=== PATIENT | female | born 1970 | race Caucasian/White ===

== ENCOUNTER 2020-07-02 16:01 | Inpatient (IN) | payer MEDICARE, MEDICAID, SELFPAY ==
[2020-07-02] VITALS (16 sets, daily range): BP systolic 114–159; BP diastolic 56–114; PULSE 84–102; RESP 16–29; TEMP 36–36.7; O2SAT 95–99; BMI 39.5; BMI 40.5
--- NOTE | 2020-07-02 | DI.RAD.S_ITS ---
PROCEDURE: XR ANKLE RT 2V INDICATIONS: POST REDUCTION TECHNIQUE: 3 views of the ankle were acquired. COMPARISON: [facility], CR, XR ANKLE LT MIN 3V, 07/02/2020, 17:31. FINDINGS: Bones: Two views of the right ankle were performed. The lateral view is incomplete, omitting the posterior ankle. There is a displaced fracture of the medial malleolus A posterior malleolar fracture cannot be excluded. Soft tissues: No tibiotalar joint effusion. Achilles tendon appears normal. There is soft tissue swelling over the medial and lateral malleolus. IMPRESSION: Displaced fracture of the medial malleolus. Dictated by: Mariano Mendes M.D. on 07/02/2020 at 19:45 Approved by: Mariano Mendes M.D. on 07/02/2020 at 19:47
--- NOTE | 2020-07-02 16:18 | DI.RAD.S_ITS ---
PROCEDURE: XR ANKLE RT MIN 3V INDICATIONS: fall TECHNIQUE: 3 views of the ankle were acquired. COMPARISON: None. FINDINGS: Bones: There is a displaced fracture of the medial malleolus. This demonstrates approximately 7 millimeters of distal displacement. There is a slightly comminuted and displaced fracture of the posterior malleolus. This demonstrates approximately 6 millimeters of posterior displacement and approximately 6 millimeters of overlap. There is widening of the medial joint space. There is mild widening of the distal tibia fibular articulation. Soft tissues: Large joint effusion. Diffuse soft tissue swelling. Plantar calcaneal spurring. IMPRESSION: Unstable ankle fracture with displaced medial malleolar and posterior malleolar fractures with widening of the medial joint space and prominence of the distal tibial fibular articulation. Recommend radiographs of the proximal leg to exclude more proximal fibular fracture. Dictated by: Elias Madsen D.O. on 07/02/2020 at 16:06 Approved by: Elias Madsen D.O. on 07/02/2020 at 16:10
--- NOTE | 2020-07-02 17:15 | DI.CT.S_ITS ---
PROCEDURE: CT LE RT WO CON INDICATIONS: complex fracture, request per ortho TECHNIQUE: Noncontrast 1-1.5 mm axial sections acquired from above the tibiotalar joint to the bottom of the calcaneus, with coronal and sagittal reformats. COMPARISON: Same day ankle radiographs. FINDINGS: Image quality: Mild motion artifact is noted which somewhat limits evaluation most specifically along the proximal aspect. Bones: Again noted is a displaced medial malleolar fracture at the level of the ankle mortise. There is a mildly comminuted and displaced posterior malleolar fracture with approximately 6 millimeters overlap and approximately 6 millimeters to 1.2 centimeters of posterior displacement worse along the distal margins. There is anterior subluxation of the tibia. There is irregularity of the joint space with widening of the medial joint space. There is widening of the tibiofibular syndesmosis. Punctate calcifications adjacent to the distal cuboid. Soft tissues: Diffuse soft tissue edema and swelling with joint effusion IMPRESSION: Displaced fracture of the medial malleolus. Displaced comminuted fracture of the posterior malleolus with anterior subluxation of the tibia. There is joint space widening with likely widening of the tibiofibular syndesmosis. Punctate calcifications along the distal aspect of the cuboid may represent small fractures. Dictated by: Elias Madsen D.O. on 07/02/2020 at 17:08 Approved by: Elias Madsen D.O. on 07/02/2020 at 17:15
--- NOTE | 2020-07-02 17:25 | DI.RAD.S_ITS ---
PROCEDURE: XR ANKLE LT MIN 3V INDICATIONS: injury, pain, swelling, ecchymosis TECHNIQUE: 3 views of the ankle were acquired. COMPARISON: [facility], CR, XR ANKLE RT MIN 3V, 07/02/2020, 16:39. FINDINGS: Bones: No fractures or dislocations. Ankle mortise is normally aligned. No suspicious bony lesions. Soft tissues: No tibiotalar joint effusion. Achilles tendon appears normal. Plantar calcaneal spur. IMPRESSION: No evidence of an acute osseous abnormality. Dictated by: Elias Madsen D.O. on 07/02/2020 at 17:04 Approved by: Elias Madsen D.O. on 07/02/2020 at 17:05
--- NOTE | 2020-07-02 17:50 | ED_ITS ---
HPI - Extremity Injury (Lower) General Chief Complaint: Extremity Injury, Lower Stated Complaint: right ankle injury Time Seen by Provider: 07/02/20 17:04 Source: patient and family Mode of arrival: Wheelchair Limitations: no limitations History of Present Illness HPI Narrative: 50-year-old female nonsmoker with history of anxiety depression presents with a close family friend in the chief complaint of severe right ankle pain after stepping awkwardly [place]. She has significant pain with ambulation, swelling. She denies any knee hip pain. She did not fall and hit her head. She denies any chest pain or shortness of breath. She did also invert her opposite ankle which is not causing the same trouble. She last had food at 1330 MD complaint: ankle injury Onset (ago): hour(s) Type of Injury: inversion Place: street/outdoors Severity: moderate Relieving factors: rest Context: fall Associated symptoms: swelling and unable to bear weight Other symptoms: none Related Data Home Medications Medication Instructions Recorded Confirmed alprazolam 1 mg PO PRN PRN 07/02/20 07/02/20 bupropion HCl 150 mg PO DAILY 07/02/20 07/02/20 bupropion HCl 300 mg PO DAILY 07/02/20 07/02/20 desvenlafaxine succinate 100 mg PO DAILY 07/02/20 07/02/20 escitalopram oxalate 20 mg PO DAILY 07/02/20 07/02/20 lurasidone [Latuda] 40 mg PO BEDTIME 07/02/20 07/02/20 omeprazole magnesium [Prilosec OTC] 20 mg PO DAILY 07/02/20 07/02/20 prazosin 1 mg PO BEDTIME 07/02/20 07/02/20 quetiapine 25 mg PO BEDTIME 07/02/20 07/02/20 Allergies Allergy/AdvReac Type Severity Reaction Status Date / Time Penicillins AdvReac Rash Verified 07/02/20 16:17 Review of Systems Constitutional Constitutional: Denies chills, Denies fatigue, Denies fever(s), Denies frequent falls, Denies lethargy and Denies weakness Eyes Eyes: Denies change in vision, Denies eye discharge, Denies irritation and Denies loss of vision ENT Ears, Nose, Mouth, and Throat: Denies change in voice, Denies dizziness, Denies neck pain, Denies sore throat and Denies throat swelling Cardiovascular Cardiovascular: Denies chest pain, Denies irregular heart rhythm, Denies lightheadedness, Denies palpitations, Denies dyspnea, Denies dyspnea on exertion and Denies orthopnea Respiratory Respiratory: Denies cough, Denies dyspnea, Denies dyspnea on exertion and Denies wheezing Gastrointestinal Gastrointestinal: Denies abdominal pain, Denies change in bowel habits, Denies diarrhea, Denies nausea and Denies vomiting Musculoskeletal Musculoskeletal: Reports arthralgias, Reports joint swelling, Reports limited range of motion, Denies neck pain and Denies numbness Integumentary/Breasts Skin/Breast: Denies pruritus, Denies erythema, Denies rash and Denies wounds Neurologic Neurologic: Denies behavioral changes, Denies confusion, Denies dizziness, Denies frequent falls, Denies loss of vision, Denies numbness and Denies weakness Psychiatric Psychiatric: Denies anxiety, Denies behavioral changes, Denies confusion, Denies depression, Denies homicidal ideation and Denies suicidal ideation Endocrine Endocrine: Denies fatigue, Denies flushing and Denies palpitations Hematologic/Lymphatic Hematologic/Lymphatic: Denies easy bruising Allergic/Immunologic Allergic/Immunologic: Denies urticaria, Denies throat swelling and Denies wheezing Patient History Social History household members: none Smoking Status: Never smoker alcohol intake: current alcohol intake frequency: holidays/special occasions only Substance Use Type: does not use Exam Narrative Exam Narrative: GENERAL: [50] year old patient appears stated age. Well- nourished, well-developed patient, in mild distress. HEAD: Atraumatic. Normocephalic. EYES: Pupils equal round and reactive. Extraocular motions intact. No scleral icterus. No injection or drainage. ENT: Nose without bleeding, purulent drainage. Throat without erythema, tonsillar hypertrophy or exudate. Airway patent. NECK: Trachea midline. Non tender CARDIOVASCULAR: Regular rate and rhythm without murmurs, gallops, or rubs. RESPIRATORY: Clear to auscultation. Breath sounds equal bilaterally. No wheezes, rales, or rhonchi. GASTROINTESTINAL: Abdomen soft, non-tender, nondistended. EXTREMITIES: Decreased range of motion secondary to pain of the right ankle with obvious swelling and tenderness over both the medial and lateral malleolus. This is closed and neurovascularly intact. Dorsalis pedis pulses present BACK: Nontender without deformity or crepitance. No flank tenderness. NEURO: AOx3. SKIN: No rash or erythema of visible areas Initial Vital Signs Initial Vital Signs: Vital Signs Temperature 98.1 F 07/02/20 16:12 Pulse Rate 91 H 07/02/20 16:12 Respiratory Rate 16 07/02/20 16:12 Blood Pressure 155/92 H 07/02/20 16:12 Pulse Oximetry 97 07/02/20 16:12 Procedures Orthopedic Joint Reduction Joint #1: Time Out Performed: Yes Side: right Joint Reduction Location: ankle Analgesia: procedural sedation Technique used: traction/counter-traction and direct manipulation Post-reduction neuro exam: intact Post-reduction vascular: intact Post Reduction X-Ray Obtained: Yes Post Reduction X-Ray Results: reduced Splint Applied: Yes Patient Tolerated Procedure: Well Orthopedic Splinting/Casting Injury #1: Side: right Lower Extremity Injury Location: ankle Lower Extremity Immobilizer: posterior splint and stirrup splint Post splinting neuro exam: intact Post splinting vascular exam: intact Placed by: Provider Procedural Sedation Consent signed: Yes Time out performed: Yes Indication: fracture/dislocation reduction ASA Class: II Mallampati Airway Classification: Class III Time of Last PO Intake: 13:30 IV Propofol dose (mg): 130 Intraservice time/total sedation time (min): 10 ED Sedation Level: Moderate (Concious) Patient Tolerated Procedure: Well Complications: none Course Course Course Narrative: Orthopedist was consulted early on in the visit, recommends CT Orders Ordered: Alprazolam (Alprazolam 0.5 Mg Tablet) 1 mg PO Q8H PRN PRN Reason: Anxiety Last Admin: 07/03/20 02:46 Dose: 1 mg Documented by: Bupropion HCl (Bupropion Xl 150 Mg Tab) 450 mg PO DAILY VIKTOR Escitalopram Oxalate (Escitalopram 10 Mg Tablet) 20 mg PO DAILY VIKTOR Lactated Ringer's (Lactated Ringers) 1,000 mls @ 75 mls/hr IV CONT VIKTOR Last Admin: 07/02/20 22:27 Dose: 75 mls/hr Documented by: Oxycodone HCl (Oxycodone Ir 5 Mg Tablet) 5 mg PO Q3HR PRN PRN Reason: Pain, Moderate (4-6) Last Admin: 07/03/20 02:45 Dose: 5 mg Documented by: Pantoprazole Sodium (Pantoprazole Dr 20 Mg Tablet) 20 mg PO DAILY@0700 [facility] Last Admin: 07/03/20 06:23 Dose: 20 mg Documented by: Prazosin HCl (Prazosin 1 Mg Capsule) 1 mg PO BEDTIME [facility] Last Admin: 07/02/20 22:17 Dose: 1 mg Documented by: Quetiapine Fumarate (Quetiapine 25 Mg Tablet) 25 mg PO BEDTIME [facility] Last Admin: 07/02/20 22:17 Dose: 25 mg Documented by: Discontinued Medications Bupropion HCl (Bupropion Xl 150 Mg Tab) 150 mg PO DAILY [facility] Hydromorphone HCl (Hydromorphone 0.5 Mg Inj) 0.5 mg IV NOW ONE Stop: 07/02/20 18:48 Last Admin: 07/02/20 18:50 Dose: 0.5 mg Documented by: Ondansetron HCl (Ondansetron 4 Mg/2 Ml Inj) 4 mg IV NOW ONE Stop: 07/02/20 18:50 Last Admin: 07/02/20 18:51 Dose: 4 mg Documented by: Propofol (Propofol 200 Mg/20 Ml Vial) 120 mg 1 mg/kg (120 mg) IV NOW ONE Stop: 07/02/20 18:11 Last Admin: 07/02/20 19:11 Dose: Not Given Documented by: Propofol (Propofol 200 Mg/20 Ml Vial) 50 mg IV NOW ONE Stop: 07/02/20 19:10 Last Admin: 07/02/20 18:32 Dose: 50 mg Documented by: Propofol (Propofol 200 Mg/20 Ml Vial) 30 mg IV NOW ONE Stop: 07/02/20 19:10 Last Admin: 07/02/20 18:33 Dose: 30 mg Documented by: Propofol (Propofol 200 Mg/20 Ml Vial) 20 mg IV NOW ONE Stop: 07/02/20 19:10 Last Admin: 07/02/20 18:35 Dose: 20 mg Documented by: Propofol (Propofol 200 Mg/20 Ml Vial) 40 mg IV NOW ONE Stop: 07/02/20 19:11 Last Admin: 07/02/20 18:36 Dose: 40 mg Documented by: Vital Signs Vital signs: Vital Signs - 8 hr 07/02/20 16:12 07/02/20 18:23 07/02/20 18:25 Temperature 98.1 F Pulse Rate 91 H 93 H 92 H Respiratory Rate 16 Blood Pressure 155/92 H 146/84 H 148/70 H Pulse Oximetry 97 96 95 07/02/20 18:30 07/02/20 18:32 07/02/20 18:35 Temperature Pulse Rate 96 H 94 H 93 H Respiratory Rate 20 27 H Blood Pressure 143/94 H Pulse Oximetry 95 96 96 07/02/20 18:36 07/02/20 18:40 07/02/20 18:41 Temperature Pulse Rate 90 87 88 Respiratory Rate 29 H 24 29 H Blood Pressure 129/65 139/76 Pulse Oximetry 96 95 97 07/02/20 18:43 07/02/20 18:45 07/02/20 18:50 Temperature Pulse Rate 84 87 86 Respiratory Rate 18 26 H 26 H Blood Pressure 128/56 L 152/65 H Pulse Oximetry 98 98 MDM - Extremity Injury (Lower) Lab Data Result diagrams: 07/02/20 17:50 07/02/20 17:50 Labs: Lab Results 07/02/20 07/02/20 07/02/20 Range/Units 17:45 17:50 17:50 WBC 18.1 H (4.5-11.0) X10^3/uL RBC 4.52 (4.0-5.2) X10^6/uL Hgb 12.2 (12.0-16.0) g/dL Hct 37.8 (36-46) % MCV 83.7 (80-100) fL MCH 27.0 (26-34) PG MCHC 32.3 (30-36) % RDW 15.2 H (11.6-14.8) % Plt Count 452 H (150-400) X10^3/uL Neut % (Auto) 83.4 H (50-75) % Lymph % (Auto) 10.8 L (25-40) % [place] % (Auto) 3.8 (3-14) % Eos % (Auto) 1.5 L (2-4) % Baso % (Auto) 0.5 (0-2) % Neut # (Auto) 51560 H (9355-9939) /uL Lymph # (Auto) 2000 (6836-7467) /uL [place] # (Auto) 700 (0-900) /uL Eos # (Auto) 300 (0-450) /uL Baso # (Auto) 100 (0-100) /uL PT 11.7 (10.1-12.7) SECONDS INR 1.1 (0.9-1.3) Sodium (137-145) mmol/L Potassium (3.4-5.1) mmol/L Chloride (98-107) mmol/L Carbon Dioxide (22-32) mmol/L BUN (7-17) mg/dL Creatinine (0.52-1.04) mg/dL Estimated GFR (>60) mL/min BUN/Creatinine Ratio (6-22) Glucose (70-100) mg/dL Calcium (8.4-10.2) mg/dL SARS-CoV-2 (PCR) Negative (Negative) 07/02/20 Range/Units 17:50 WBC (4.5-11.0) X10^3/uL RBC (4.0-5.2) X10^6/uL Hgb (12.0-16.0) g/dL Hct (36-46) % MCV (80-100) fL MCH (26-34) PG MCHC (30-36) % RDW (11.6-14.8) % Plt Count (150-400) X10^3/uL Neut % (Auto) (50-75) % Lymph % (Auto) (25-40) % [place] % (Auto) (3-14) % Eos % (Auto) (2-4) % Baso % (Auto) (0-2) % Neut # (Auto) (2214-4956) /uL Lymph # (Auto) (9464-3711) /uL [place] # (Auto) (0-900) /uL Eos # (Auto) (0-450) /uL Baso # (Auto) (0-100) /uL PT (10.1-12.7) SECONDS INR (0.9-1.3) Sodium 131 L (137-145) mmol/L Potassium 4.8 (3.4-5.1) mmol/L Chloride 98 (98-107) mmol/L Carbon Dioxide 26 (22-32) mmol/L BUN 18 H (7-17) mg/dL Creatinine 1.32 H (0.52-1.04) mg/dL Estimated GFR 42.8 L (>60) mL/min BUN/Creatinine Ratio 13.6 (6-22) Glucose 104 H (70-100) mg/dL Calcium 9.2 (8.4-10.2) mg/dL SARS-CoV-2 (PCR) (Negative) Point of Care Testing Test Results Not applicable Imaging Data Extremity x-ray #1: Radiologist's Impression: [address] [id number] ReportSigned Patient: Cheri Maria AMR#: [id number]: 1970Acct:[id number]/Sex: 50 / FDate of Service: 07/02/20Loc: EDAccession Number: [id number] Procedure: XR ankle RT min 3V Ordering Provider: Max Jose D.O. PROCEDURE: XR ANKLE RT MIN 3V INDICATIONS: fall TECHNIQUE: 3 views of the ankle were acquired. COMPARISON: None. FINDINGS: Bones: There is a displaced fracture of the medial malleolus. This demonstrates approximately 7 millimeters of distal displacement. There is a slightly comminuted and displaced fracture of the posterior malleolus. This demonstrates approximately 6 millimeters of posterior displacement and approximately 6 millimeters of overlap. There is widening of the medial joint space. There is mild widening of the distal tibia fibular articulation. Soft tissues: Large joint effusion. Diffuse soft tissue swelling. Plantar calcaneal spurring. IMPRESSION: Unstable ankle fracture with displaced medial malleolar and posterior malleolar fractures with widening of the medial joint space and prominence of the distal tibial fibular articulation. Recommend radiographs of the proximal leg to exclude more proximal fibular fracture. Dictated by: Elias Madsen D.O. on 07/02/2020 at 16:06 Approved by: Elias Madsen D.O. on 07/02/2020 at 16:10 CT LE: Radiologist's Impression: [address] [id number] Scan ReportSigned Patient: Cheri Maria AMR#: [id number]: 1970Acct:[id number]/Sex: 50 / FDate of Service: 07/02/20Loc: EDAccession Number: [id number] Procedure: CT LE RT wo con Ordering Provider: Max Jose D.O. PROCEDURE: CT LE RT WO CON INDICATIONS: complex fracture, request per ortho TECHNIQUE: Noncontrast 1-1.5 mm axial sections acquired from above the tibiotalar joint to the bottom of the calcaneus, with coronal and sagittal reformats. COMPARISON: Same day ankle radiographs. FINDINGS: Image quality: Mild motion artifact is noted which somewhat limits evaluation most specifically along the proximal aspect. Bones: Again noted is a displaced medial malleolar fracture at the level of the ankle mortise. There is a mildly comminuted and displaced posterior malleolar fracture with approximately 6 millimeters overlap and approximately 6 millimeters to 1.2 centimeters of posterior displacement worse along the distal margins. There is anterior subluxation of the tibia. There is irregularity of the joint space with widening of the medial joint space. There is widening of the tibiofibular syndesmosis. Punctate calcifications adjacent to the distal cuboid. Soft tissues: Diffuse soft tissue edema and swelling with joint effusion IMPRESSION: Displaced fracture of the medial malleolus. Displaced comminuted fracture of the posterior malleolus with anterior subluxation of the tibia. There is joint space widening with likely widening of the tibiofibular syndesmosis. Punctate calcifications along the distal aspect of the cuboid may represent small fractures. Dictated by: Elias Madsen D.O. on 07/02/2020 at 17:08 Approved by: Elias Madsen D.O. on 07/02/2020 at 17:15 Discharge Plan Departure Patient Disposition: Admitted as Observation Clinical Impression: Bimalleolar ankle fracture, Moderate left ankle sprain Admit Date/Time: 07/02/20 19:14 Admit Provider: Salome Benjamin
[2020-07-02 18:14] LABS: Add Manual Diff / Slide Review NO; Basophils Absolute Auto 100 /uL (0-100); Basophils Percent Auto 0.5 % (0-2); Eosinophils Absolute Auto 300 /uL (0-450); Eosinophils Percent Auto 1.5 % (2-4); Hematocrit 37.8 % (36-46); Hemoglobin 12.2 g/dL (12.0-16.0); Lymphocytes Absolute Auto 2000 /uL (1100-4500); Lymphocytes Percent Auto 10.8 % (25-40); Mean Corpuscular HGB Conc 32.3 % (30-36); Mean Corpuscular Volume 83.7 fL (80-100); Monocytes Absolute Auto 700 /uL (0-900); Monocytes Percent Auto 3.8 % (3-14); Neutrophils Absolute Auto 15100 /uL (1500-7000); Neutrophils Percent Auto 83.4 % (50-75); Platelet Count 452 X10^3/uL (150-400); Red Blood Cell Count 4.52 X10^6/uL (4.0-5.2); Red Cell Distribution Width 15.2 % (11.6-14.8); White Blood Cell Count 18.1 X10^3/uL (4.5-11.0)
[2020-07-02 18:15] LABS: INR 1.1 (0.9-1.3); Prothrombin Time 11.7 SECONDS (10.1-12.7)
[2020-07-02 18:26] LABS: BUN Creatinine Ratio 13.6 (6-22); Blood Urea Nitrogen 18 mg/dL (7-17); Calcium 9.2 mg/dL (8.4-10.2); Carbon Dioxide 26 mmol/L (22-32); Chloride 98 mmol/L (98-107); Estimated Glomerular Filt Rate 42.8 mL/min (>60); Glucose 104 mg/dL (70-100); HEMOLYSIS 47 (0-50); Potassium 4.8 mmol/L (3.4-5.1); Sodium 131 mmol/L (137-145)
[2020-07-02] MEDS: propofoL 200 MG/20 ML VIAL 50 MG IV (18:32)
[2020-07-02] MEDS: propofoL 200 MG/20 ML VIAL 30 MG IV (18:33)
[2020-07-02] MEDS: propofoL 200 MG/20 ML VIAL 20 MG IV (18:35)
[2020-07-02] MEDS: propofoL 200 MG/20 ML VIAL 40 MG IV (18:36)
[2020-07-02] MEDS: HYDROMORPHONE 0.5 MG INJ IV (18:50)
[2020-07-02] MEDS: ONDANSETRON 4 MG/2 ML INJ IV (18:51)
[2020-07-02 18:52] LABS: COVID19 - ADMIT (NP swab/PCR) Negative (Negative)
--- NOTE | 2020-07-02 19:15 | PC.NURSE ---
all doses of propofol administered by Dr Jose IV PUSH
--- NOTE | 2020-07-02 19:42 | P.HP_ITS ---
History of Present Illness History of Present Illness Date Patient Seen: 07/02/20 Time Patient Seen: 19:42 Date of Onset of Symptoms: 07/02/20 Chief complaint: right ankle injury Narrative: This is the 50-year-old female who was at a retreat somewhere in the and a [facility] area and fell going over a log noted the acute onset of bilateral right greater than left ankle and foot pain. She had severe pain in her right ankle and noticed deformity of her foot was unable to weightbear on it. 911 was called and she was transferred to [facility]. She notes significant pain in the right ankle. She lives in [place] and is on disability due to a combination of depression and anxiety. She lives in apartment which is on the 2nd story. She has a sister who lives in [place]. Patient History Family & Social History Safety & Behavioral: Feels Safe in Current Yes Environment Been Physically Hurt or No Threatened By a Person Tobacco & Substance use: alcohol intake frequency holiday/special occasion Substance Use Type does not use Meds Home Medications and Allergies Allergies Allergy/AdvReac Type Severity Reaction Status Date / Time Penicillins AdvReac Rash Verified 07/02/20 16:17 Review of Systems Review of Systems Narrative: She notes she was feeling reasonably well until the fall. She denies a history of lightheadedness chest pain or shortness of breath prior to the fal l. She was not dizzy prior to the fall. Exam Vital Signs (past 8 hours): - 07/02/20 16:12 07/02/20 18:23 07/02/20 18:25 Temperature 98.1 F Pulse Rate 91 H 93 H 92 H Respiratory Rate 16 Blood Pressure 155/92 H 146/84 H 148/70 H Pulse Oximetry 97 96 95 07/02/20 18:30 07/02/20 18:32 07/02/20 18:35 Temperature Pulse Rate 96 H 94 H 93 H Respiratory Rate 20 27 H Blood Pressure 143/94 H Pulse Oximetry 95 96 96 07/02/20 18:36 07/02/20 18:40 07/02/20 18:41 Temperature Pulse Rate 90 87 88 Respiratory Rate 29 H 24 29 H Blood Pressure 129/65 139/76 Pulse Oximetry 96 95 97 07/02/20 18:43 07/02/20 18:45 07/02/20 18:50 Temperature Pulse Rate 84 87 86 Respiratory Rate 18 26 H 26 H Blood Pressure 128/56 L 152/65 H Pulse Oximetry 98 98 07/02/20 19:00 07/02/20 19:30 Temperature Pulse Rate 93 H 89 Respiratory Rate 27 H 29 H Blood Pressure 159/72 H 158/69 H Pulse Oximetry 99 97 Oxygen Delivery Method Room Air Narrative Exam Narrative: HEENT is benign, lungs are clear cor regular rate and rhythm, abdomen is obese but benign, right lower extremity shows a splint in place she is able to fire toe flexors and extensors with trace motion, left lower extremity shows swelling on the dorsum of the left foot with obvious bruising she can fire her toe flexors and extensors her ankle is benign she has some midfoot swelling Objective Labs Result Diagrams: 07/02/20 17:50 07/02/20 17:50 Labs: Laboratory Results - last 24 hr 07/02/20 07/02/20 07/02/20 17:45 17:50 17:50 WBC 18.1 H RBC 4.52 Hgb 12.2 Hct 37.8 MCV 83.7 MCH 27.0 MCHC 32.3 RDW 15.2 H Plt Count 452 H Neut % (Auto) 83.4 H Lymph % (Auto) 10.8 L [place] % (Auto) 3.8 Eos % (Auto) 1.5 L Baso % (Auto) 0.5 Neut # (Auto) 89252 H Lymph # (Auto) 2000 [place] # (Auto) 700 Eos # (Auto) 300 Baso # (Auto) 100 PT 11.7 INR 1.1 Sodium Potassium Chloride Carbon Dioxide BUN Creatinine Estimated GFR BUN/Creatinine Ratio Glucose Calcium SARS-CoV-2 (PCR) Negative 07/02/20 17:50 WBC RBC Hgb Hct MCV MCH MCHC RDW Plt Count Neut % (Auto) Lymph % (Auto) [place] % (Auto) Eos % (Auto) Baso % (Auto) Neut # (Auto) Lymph # (Auto) [place] # (Auto) Eos # (Auto) Baso # (Auto) PT INR Sodium 131 L Potassium 4.8 Chloride 98 Carbon Dioxide 26 BUN 18 H Creatinine 1.32 H Estimated GFR 42.8 L BUN/Creatinine Ratio 13.6 Glucose 104 H Calcium 9.2 SARS-CoV-2 (PCR) Right ankle x-rays shows of fracture dislocation of the right ankle with posterior subluxation of the talus and a grossly displaced medial malleolus fracture, postreduction films show acceptable alignment, CT scan of the right ankle shows comminuted posterior malleolus fracture with multiple small fragments in the fracture site and a grossly displaced medial malleolus fracture with a subluxed ankle, left ankle films show no evidence of an ankle fracture, partial visualization of the foot does not show an obvious fracture Assessment & Plan Assessment & Plan narrative: Fracture dislocation of the right ankle with an unstable fracture with the medial malleolus fracture and a posterior malleolar fracture with comminution and some component of a tibial plafond fracture. It is an inherently unstable fracture and requires open reduction internal fixation. She is nonweightbearing on the right lower extremity due to this fracture and cannot weight bear on the left lower extremity due to a left foot sprain. She has left foot x-rays which are pending. I have recommended admission to inpatient status with a plan for open reduction internal fixation of her right tibial plafond and fracture tomorrow. The procedure alternatives risks benefits and complications were discussed in detail. She also has pre- existing conditions of significant depression, morbid obesity which will likely substantially complicate our ability to mobilize her in rehab her and an anxiety disorder. I will follow-up on her left foot x-rays at this point I think her left foot can probably be treated conservatively. She understands the need for surgery and consents to surgery.
--- NOTE | 2020-07-02 19:49 | DI.RAD.S_ITS ---
PROCEDURE: XR FOOT LT MIN 3V INDICATIONS: pain after injury TECHNIQUE: 3 views of the foot were acquired. COMPARISON: [facility], CR, XR ANKLE RT 2V, 07/02/2020, 18:42. FINDINGS: Bones: There is a possible avulsion fracture of the lateral calcaneus at the articulation with the cuboid. On the oblique view this appears to possibly be a sesamoid, however on the AP view, there are characteristics of an avulsion fracture. Overlying soft tissue swelling is noted. Soft tissues: No tibiotalar joint effusion. Achilles tendon appears normal. IMPRESSION: Possible avulsion fracture of the distal aspect of the lateral calcaneus at the articulation with the cuboid bone. Please correlate with point tenderness. Dictated by: Mariano Mendes M.D. on 07/02/2020 at 20:42 Approved by: Mariano Mendes M.D. on 07/02/2020 at 20:48
[2020-07-02] MEDS: PRAZOSIN 1 MG CAPSULE PO (22:17)
[2020-07-02] MEDS: QUETIAPINE 25 MG TABLET PO (22:17)
[2020-07-02] MEDS: LACTATED RINGERS 1,000 ML 75 ML IV (22:27)
--- NOTE | 2020-07-02 22:52 | PC.NURSE ---
Admission note: Patient arrived via stretcher @ 2024, transferred via slider board. AxOx3, can make needs known. Recent hx of fall resulting in broken right ankle and bruised left ankle. Hypertensive at admission, resolved with BP cuff change and therapeutic communication. Med reconcilliation complete. Splint on right ankle CMS positive. High fall risk d/t recent fall and bed rest d/t unstable fracture. Surgery tomorrow, NPO except meds at midnight. Bed alarm on and functioning, call light in reach.
[2020-07-02] MEDS: OXYCODONE IR 5 MG TABLET PO (23:51)
[2020-07-03] VITALS (17 sets, daily range): BP systolic 101–141; BP diastolic 42–89; PULSE 74–99; RESP 12–20; TEMP 35.6–36.9; O2SAT 92–100; BMI 40.5
--- NOTE | 2020-07-03 | DI.RAD.S_ITS ---
PROCEDURE: XR ANKLE RT MIN 3V INDICATIONS: intraoperative left ankle TECHNIQUE: 3 views of the ankle were acquired. COMPARISON: [facility], CT, CT LE RT WO CON, 07/02/2020, 17:24. [facility], CR, XR ANKLE RT 2V, 07/02/2020, 18:42. FINDINGS: Intraoperative images demonstrating fixation of the lateral and medial malleolus. There is relatively good anatomic alignment. Hardware is intact. IMPRESSION: Lateral and medial malleolar fixation. Dictated by: Meron Ba M.D. on 07/03/2020 at 18:29 Approved by: Meron Ba M.D. on 07/03/2020 at 18:30
[2020-07-03] MEDS: OXYCODONE IR 5 MG TABLET PO ×2 (02:45→23:32)
[2020-07-03] MEDS: ALPRAZolam 0.5 MG TABLET 1 MG PO ×2 (02:46→23:32)
[2020-07-03] MEDS: PANTOPRAZOLE DR 20 MG TABLET PO (06:23)
[2020-07-03] MEDS: buPROPion XL 150 MG TAB 450 MG PO (08:25)
[2020-07-03] MEDS: ESCITALOPRAM 10 MG TABLET 20 MG PO (08:25)
--- NOTE | 2020-07-03 08:48 | PM.PREOP ---
Pre-operative Note COVID-19 COVID-19 status: Negative Interval Note History & Physical reviewed/Exam performed by Physician: Yes Changes to H&P: No H&P completed within 30 days and has changed as indicated here:: left foot x ray shows small lateral calcaneus avulsion fracture
--- NOTE | 2020-07-03 09:01 | PC.NURSE ---
Day shift: Pt off AC unit at approx 0850 for surgery.
[2020-07-03] MEDS: LACTATED RINGERS 1,000 ML 42 ML IV ×2 (09:17→13:09)
--- NOTE | 2020-07-03 09:52 | PC.NURSE ---
Day shift: Pt remains off AC unit at this time.
--- NOTE | 2020-07-03 09:56 | PM.OP.1 ---
Operative Date/Time/Diagnoses Date of procedure: 07/03/20 Time of procedure: 09:56 Pre-op diagnosis: Right trimalleolar ankle fracture with dislocation and the tibial plafond extension Post-op diagnosis: same Procedure & Clinicians Procedure: ORIF right tibial plafond fracture Same procedure as scheduled: Yes Indications: This 50-year-old female who slipped on a log and sustained a right ankle fracture. X-rays and CT scan showed a medial malleolus fracture and a posterior tibial plafond fracture. Her ankle was dislocated initially. She is brought to the operating room for open reduction internal fixation with a plan for a posterolateral approach to the tibia and a medial approach to the medial malleolus. Surgeon: Salome Benjamin Click Yes if Unassisted: Yes Anesthesia Type: General and Peripheral nerve block Operative Notes Findings: Comminuted right tibia fracture with acceptable overall reduction and stable fixation Closure Type: primary Specimen(s): none sent Prosthetic devices, grafts, tissues, transplants, or devices: Arthrex 1/3 tubular plate posteriorly, 2 medial malleolus screws, tight rope Estimated Blood Loss (mL): 250 Blood products transfused: none Tourniquet time (min): 102 Procedure in detail: Patient was brought to the operating room. She underwent induction with general anesthesia. A time-out was performed. She was carefully positioned in a lateral to partially prone position on a beanbag. Her leg was placed on multiple bumps and her down leg was hyperflexed. We meticulously padded her because of her morbid obesity. She was given IV antibiotics. Esmarch was used and the tourniquet was elevated. Posterolateral incision was made about long term between the Achilles and the posterior fibula, dissection was carried out through skin and subcutaneous tissues. A wheitlaner retractor was placed. Sural nerve was carefully identified and protected. The fascia overlying the peroneal tendons was incised. Peroneal tendons were retracted laterally dissection was carried out down to the fibula the fascia over the flexor hallucis longus was opened. A small amount was released from the posterior aspect of the fibula. The perforating vessel was carefully protected. The flexor hallucis was carefully dissected free from the the tibia. Posterolateral fragment of the tibia was carefully identified. There were multiple small chips in the fracture. It was meticulously irrigated with normal saline a dental pick and a suction and irrigation was used to clear the fracture site. The fracture was then meticulously reduced and fixed temporarily with 2 K-wires. A 1/3 tubular plate was carefully bent and provisionally fit position on the posterior tibia. Fracture was a little bit difficult to reduce but in acceptable overall reduction and plate position was obtained. It was then carefully fixed using a lag screw distally and further using the plate as a buttress. The position of the plate and screws was checked fluoroscopically. Adequate reduction and fixation was achieved. It was somewhat difficult to get a good reduction and I was very meticulous about the position of the plate. Reduction and fixation was meticulously checked with fluoroscopy. The wound was irrigated with normal saline. It was closed with interrupted Vicryl and skin erik. The patient was then carefully repositioned rolling her slightly more supine and a medial skin incision was made. Dissection was carried out through skin and subcutaneous tissues. Saphenous neurovascular bundle was meticulously protected. Medial malleolar fracture fragment was identified. It was meticulously reduced and fixed with 2 cannulated screws. The medial malleolus was somewhat soft and the fragment was small. Hardware position and reduction was carefully checked with fluoroscopy. The wound was meticulously irrigated with normal saline. Marcaine was injected. Next I checked the mortise and did a specific stress view of the mortise. There was some mild opening of the mortise despite stable fixation of the medial malleolus and the posterior tibia. I felt it was in the patient's best interest to further stabilize it with a tight rope. A lateral skin incision was made dissection was carried out down to the fibula. Mortise was further reduced using a clamp and a tight rope was placed. Initially there was a little anterior with my positioning subsequently I made a drill hole but it was a little bit posterior. Patient had an open wound so we checked the endo-button made sure that it was adequately flipped it was in the posterior medial aspect of the tibia. I carefully checked to make sure there was no impingement upon the posterior tibial tendon. A tight rope was then sequentially gently tightened I did dorsiflex the flex ankle to make sure that I did not over tighten the tight rope. The wound was closed with interrupted Vicryl and nylon. She had moderate swelling the wound was closed with nylon with minimal tension but the skin was noted to be somewhat contused. The wounds were dressed sterilely and the patient was placed in a bulky García. Complications: none Post-operative Condition: stable Disposition: Acute Care Plan for aftercare: Nonweightbearing right lower extremity for 6 weeks. Return to clinic in 2 weeks for x-rays out of plaster and application of a short-leg cast. Significant elevation for at least 2 days postoperatively.
[2020-07-03] MEDS: CEFAZOLIN VIAL 3 GM in SODIUM CHLORIDE 0.9% 100 ML 200 ML IV (10:15)
[2020-07-03] MEDS: BUPIVACAINE 0.5% W/ EPI (PF) 30 ML VIAL 10 ML INJ (10:56)
--- NOTE | 2020-07-03 12:45 | PC.NURSE ---
Day shift: Pt remains off AC unit at this time (3165).
--- NOTE | 2020-07-03 15:19 | SUR.PHASEI ---
Dr. Maxwell spoke to patient, she denies pain. Ice behind the knee and elevation upon admit to PACU. Pt denies nausea, ice chips given.
--- NOTE | 2020-07-03 15:24 | SUR.PHASEI ---
report called to GALE Baker. Patient feeding herself ice chips. Stable
--- NOTE | 2020-07-03 15:40 | SUR.PHASEI ---
1532 to room 04, bed down and locked, call light within reach. Patient drowsy, denies pain/nausea, tolerating ice chips well. Expressed appreciation for care. No questions from patient or staff.
--- NOTE | 2020-07-03 15:48 | PC.NURSE ---
Addendum entered by Tiffanie Morataya R.N. 07/03/20 16:55: Notified patient that pharmacy does not stock her lurasidone or desvenlafaxine and to have access to it she will need her sister to bring it in. Patient acknowledged teaching. Original Note: Shift note: Patient returned from PACU at 1540. Saturating WNL on RA, denies pain and nausea. NWB for 6 weeks on right foot.
--- NOTE | 2020-07-03 16:27 | CM.DANOTE ---
DCP ASSESSMENT: Patient is a 50 Year-old female admitted for right ankle fracture. PCP is unknown. Primary payer is [facility] Medicare Advantage and Medicaid. Attempted to meet with patient this date however, she has been in surgery. Completed a chart review and spoke with nursing who reported patient has presented very anxious during hospitalization. Dr. Benjamin reports that patient mentioned going to rehabilitation for recovery? PLAN: Will complete assessment and in-person interview on 07/03/20. Therapy evaluation pending. USHA Yip MSW Student Discharge Planning/Care Management CM Discharge Assessment Start: 07/03/20 15:02 Freq: Status: Active Protocol: Document 07/03/20 15:02 AL (Rec: 07/03/20 15:05 AL [id number]) Discharge Planning Assessment Assigned Blower Installer USHA Quispe Student Advance Directives? No History Provided By Medical Record Prior Living Arrangements Apartment/Condo Comment Patient lives in an second floor apartment. Household Members none Review Status In Process
[2020-07-03] MEDS: LACTATED RINGERS 1,000 ML 125 ML IV (16:49)
[2020-07-03] MEDS: CEFAZOLIN 1 GM VIAL 2 GM IV (17:55)
[2020-07-03] MEDS: QUETIAPINE 25 MG TABLET PO (20:07)
[2020-07-03] MEDS: PRAZOSIN 1 MG CAPSULE PO (20:07)
[2020-07-03] MEDS: DOCUSATE 100 MG CAPSULE PO (20:07)
[2020-07-03] MEDS: ASPIRIN EC 81 MG TABLET PO (20:07)
[2020-07-04] MEDS: CEFAZOLIN 1 GM VIAL 2 GM IV (01:13)
[2020-07-04 03:12] VITALS: BP 131/98; PULSE 109; RESP 18; TEMP 36.7
[2020-07-04] MEDS: ALPRAZolam 0.5 MG TABLET 1 MG PO ×2 (05:42→21:13)
[2020-07-04] MEDS: PANTOPRAZOLE DR 20 MG TABLET PO (05:42)
[2020-07-04] MEDS: OXYCODONE IR 5 MG TABLET PO ×5 (05:43→18:49)
[2020-07-04 06:36] LABS: Hematocrit 28.9 % (36-46); Hemoglobin 9.3 g/dL (12.0-16.0); Mean Corpuscular HGB Conc 32.2 % (30-36); Mean Corpuscular Hemoglobin 27.1 PG (26-34); Mean Corpuscular Volume 84.1 fL (80-100); Platelet Count 349 X10^3/uL (150-400); Red Blood Cell Count 3.44 X10^6/uL (4.0-5.2); Red Cell Distribution Width 15.2 % (11.6-14.8)
--- NOTE | 2020-07-04 07:36 | PM.PNPO.1 ---
Subjective Subjective Date Patient Seen: 07/04/20 Time Patient Seen: 07:36 Interval history: Patient states she is doing well overall and is in minimal discomfort at rest. At this time patient denies fever, chills, nausea, chest pain, shortness of breath, or urinary retention. Patient reports good sensation throughout the bilateral lower extremities. She states she understands she is to remain nonweightbearing on the right lower extremity for 6 weeks. Exam Vital Signs (past 8 hours): - 07/03/20 23:41 07/04/20 03:12 Temperature 97.9 F 98.0 F Pulse Rate 97 H 109 H Respiratory Rate 16 18 Blood Pressure 135/76 131/98 H Oxygen Delivery Method Room Air Oxygen Flow Rate 0 Narrative Exam Narrative: 50-year-old female postop day 1 status post ORIF of the right tibial plafond fracture. Patient is resting comfortably in bed, is in no acute distress, is alert and oriented x3. Skin is warm dry. Good sensation appreciated throughout the bilateral lower extremities light touch. Examination slightly limited due to bulky dressing over the right lower extremity. Palpable pulses appreciated. Ankle dorsiflexion, plantar flexion, eversion, inversion performed on the left lower extremity without difficulty or discomfort. Capillary refill less than 2 seconds. Calves are soft nontender, negative Homans sign. No other signs of DVT appreciated. Const General: cooperative, healthy appearing and comfortable Resp Effort & Inspection: normal respiratory effort and able to speak in complete sentences Skin General: no rashes or lesions noted Objective Labs Result Diagrams: 07/04/20 06:20 07/02/20 17:50 Labs: Laboratory Results - last 24 hr 07/04/20 06:20 WBC 17.0 H RBC 3.44 L Hgb 9.3 L Hct 28.9 L MCV 84.1 MCH 27.1 MCHC 32.2 RDW 15.2 H Plt Count 349 PFSH Social History household members: none Smoking Status: Never smoker alcohol intake: current Assessment & Plan Post-op Postoperative Procedures: Procedures Operation Date: 07/03/20 09:45 Actual Procedures Side Surgeon p ORIF Ankle Fracture Right Salome Benjamin MD Postoperative day: 1 Postoperative status: doing well Postoperative plan narrative: Patient is to continue working with PT on ambulation with crutches on a nonweightbearing status of the right lower extremity. Patient is to continue current pain management regimen is is good adequately controlling the patient's pain level at this time. One working with PT the patient is to remain in her boot on the left lower extremity. Will order chest x-ray due to concerns over elevated white blood cell count. Time Spent With Patient Time with patient: 15-24 minutes Quality VTE Deep Vein Thrombosis/Pulmonary Embolism Present on Admission: No
[2020-07-04 08:00] VITALS: BP 156/96; PULSE 87; RESP 18; TEMP 36.3; O2SAT 97
--- NOTE | 2020-07-04 08:08 | DI.RAD.S_ITS ---
PROCEDURE: XR CHEST 1V INDICATIONS: Elevated WBC TECHNIQUE: One view of the chest was acquired. COMPARISON: None. FINDINGS: Surgical changes and devices: None. Lungs and pleura: Lungs are clear. No pleural effusions or pneumothorax. Mediastinum: Mediastinal contours appear normal. Heart size is normal. Bones and chest wall: No suspicious bony lesions. Overlying soft tissues appear unremarkable. IMPRESSION: No acute pulmonary process. Dictated by: Meron Ba M.D. on 07/04/2020 at 8:35 Approved by: Meron Ba M.D. on 07/04/2020 at 8:35
[2020-07-04] MEDS: buPROPion XL 150 MG TAB 450 MG PO (08:31)
[2020-07-04] MEDS: ASPIRIN EC 81 MG TABLET PO ×2 (08:31→21:04)
[2020-07-04] MEDS: ESCITALOPRAM 10 MG TABLET 20 MG PO (08:32)
[2020-07-04] MEDS: polyethylene glycoL 3350 17 GM POWD.PACK PO (08:33)
[2020-07-04] MEDS: DOCUSATE 100 MG CAPSULE PO ×2 (08:33→21:04)
[2020-07-04 10:12] LABS: Bacteria Urine None Seen
[2020-07-04 10:14] LABS: Appearance Urine UA CLEAR; Bilirubin Urine UA NEGATIVE (NEGATIVE); Color Urine UA YELLOW; Glucose Urine UA NEGATIVE (Negative); Ketones Urine UA NEGATIVE (NEGATIVE); Leukocyte Esterase Urine UA NEGATIVE (NEGATIVE); Nitrite Urine UA NEGATIVE (Negative); Occult Blood Urine UA TRACE-LYSED (Negative); Protein Urine UA NEGATIVE (Negative); Specific Gravity Urine UA <=1.005 (1.000-1.035); Urobilinogen Urine UA 0.2 E.U./dL (0.2)
[2020-07-04 10:16] LABS: pH Urine UA 6.5 (4.5-8.0)
--- NOTE | 2020-07-04 10:16 | PT.IIE ---
Current Diagnoses Displaced trimalleolar fracture of right lower leg, initial encounter for closed fracture (07/02/20) Surgery Performed Operation Date: 07/03/20 09:45 Actual Procedures p ORIF Ankle Fracture(Right) - Salome Benjamin MD Physical Therapy Inpatient Evaluation/Re-Eval M1 PT/OT-IP Prior Functional Status Start: 07/04/20 08:39 Freq: NEEDED Status: Active Protocol: Document 07/04/20 10:16 AW (Rec: 07/04/20 11:22 AW [id number]) Medical Review Prior Functional Status Medical History Reviewed Yes Communication WNL. Pt is an effective verbal communicator. Mobility and Gait Independent Activities of Daily Living and IADL's Independent Prior Functional Level (Other details) Pt reports multiple falls over the past six months - both in her apartment and on uneven ground outside. Social History Household Members none Living Arrangements Apartment/Condo Number of Stairs To Enter/Railing? Pt lives in a third floor apartment which is accessible by elevator or stair lift. Home Environment Standard Height Toilet,Tub/ Shower Employment Status Unemployed Additional Social History Comment Pt lives alone in [place]. Her sister, Stephanie, also lives in [place]. M2 PT-IP Current Condition Start: 07/04/20 08:39 Freq: NEEDED Status: Active Protocol: Document 07/04/20 10:16 AW (Rec: 07/04/20 11:22 AW [id number]) Physical Therapy Current Condition Current Condition Evaluation Date 07/04/20 Treatment Diagnosis R tibial plafond fracture s/p ORIF; impaired mobility and gait Onset Date 07/03/20 Precautions Other Precautions falls Weight Bearing Status Weight Bearing Status Non-Weight Bearing Allowed Weight Bearing Amount (enter % NWB RLE. Western boot on LLE or #) (%) for mobility. M3 PT-IP Subjective Start: 07/04/20 08:39 Freq: NEEDED Status: Active Protocol: Document 07/04/20 10:16 AW (Rec: 07/04/20 11:22 AW [id number]) Subjective Physical Therapy Visit Type Type Initial Evaluation Visit Start Time 09:40 Visit Stop Time 10:16 Total Visit Minutes 36 Physical Therapy Visit Comments Patient Comments Pt is willing to participate with PT Patient Goals Improve mobility, increase independence. Therapy Pain Assessment Pain When Pain Assessed At Rest Pain Present Pain Present Pain Reported Location Right Ankle Intensity 4 Pain Management Techniques Apply Cold,Elevation,Timing of Activity with Medications M4 PT-IP Mobility and Gait Start: 07/04/20 08:39 Freq: NEEDED Status: Active Protocol: Document 07/04/20 10:16 AW (Rec: 07/04/20 11:22 AW [id number]) PT-Bed Mobility Assessment Supine to Sit Supine to Sit Moderate Assistance,1 Person Assistance Scooting Scooting to Edge of Bed Contact Guard Assistance PT-Transfer Assessment Sit to and From Stand Sit to and from Stand Maximum Assistance,1 Person Assistance,Use of Upper Extremities Equipment Transfer Assistive Device Gait Belt,Front Wheeled Walker Orthotic/Prosthetic Devices or Brace: No Transfers Transfer Destination Chair Transfer Technique Stand Step Pivot Transfer Ability Level of Assist Maximum Assistance,1 Person Assistance,Use of Upper Extremities Comments Mobility Comments Pt was sitting up in bed as PT arrived. Reviewed NWB RLE status and demonstrated stand pivot transfer with FWW. With HOB flat, pt pulled up to long -sitting and then needed mod assist to support her RLE as she pivoted toward left side EOB. In sitting, PT donned the walking boot to LLE. Pt scooted all the way to EOB CGA and stood from the bed in lowest position with use of bed cane on right side and max assist. She used the walker to stabilize herself with good attention to NWB RLE. She step pivot transferred to the chair set up on her right side max assist, demonstrating poor control of descent and one lateral LOB requiring assist to recover. Pt stood from the chair max assist and max cues to push from the chair arms and then sat again. Pt was positioned on the chair with call light and all needs in reach, fresh ice applied to her right ankle. Gait Assessment Comments Gait Comments Pt able to pivot during transfer. Stair Climbing Assessment Comments Stair Climbing Comments Not assessed. PT-Balance Assessment Sitting Balance and Reactions Static Sitting Balance Ability Good Dynamic Sitting Balance Ability Good Standing Balance and Reactions Static Standing Balance Ability Fair Dynamic Standing Balance Ability Poor Device Used FWW M5 PT-IP Objective Assessments Start: 07/04/20 08:39 Freq: NEEDED Status: Active Protocol: Document 07/04/20 10:16 AW (Rec: 07/04/20 11:22 AW [id number]) Orientation Orientation/Cognition Level of Alertness Alert Orientation Name,Day of Week,Place, Situation Language Function Ability No Deficits Noted Safety Awareness Understands Safety Issues Memory Description No Deficits Noted Gross Range of Motion Upper Extremity ROM Assessment Within Functional Limits Lower Extremity ROM Assessment Right Impaired Strength Upper Extremity Strength Assessment Bilaterally Impaired Shoulder 4/5 Elbow 4+/5 Lower Extremity Strength Assessment Right Impaired Hip 4-/5 Knee 4/5 Comments Strength Comments LLE grossly 4+/5 Sensation Assessment Sensation Gross Sensation WNL Muscle Tone Muscle Tone WNL Yes M6 PT-IP Treatment Start: 07/04/20 08:39 Freq: NEEDED Status: Active Protocol: Document 07/04/20 10:16 AW (Rec: 07/04/20 11:22 AW [id number]) Physical Therapy Treatment Exercises Exercises Ankle Pumps,Quad Sets,Heel Slides Education Education Provided Weight Bearing Status,Safety Brace Education [place],Patient Equipment Issued Equipment Type and Company Walking boot was already in the room, issued by ED. Other Treatments Other Treatment Performed Edcuated pt on WB status, PT plan of care, and safe use of FWW. M7 PT-IP Assessment and Plan Start: 07/04/20 08:39 Freq: NEEDED Status: Active Protocol: Document 07/04/20 10:16 AW (Rec: 07/04/20 11:22 AW [id number]) PT Summary Assessment and Plan Potential Rehabilitation Potential Good Status of Condition at Evaluation Evolving Summary Impairments Pain,ROM,Strength,Balance,Bed Mobility,Transfers,Gait Assessment Summary Cheri is a 50 yo woman seen for PT evaluation on POD1 following ORIF R ankle/tibial plafond fracture. PLOF: Pt is independent in all regards but reports multiple falls in the past six months. She is on disability due to depression/ anxiety. CLOF: Pt requiring max assist for transfers at this time. She would benefit from SNF rehab to improve her strength and mobility independence. If pt goes home, she will need 24/7 assist available, equipment detailed below, and home health PT. Goals Bed Mobility Goal Standby Assistance Transfer Goal Standby Assistance,Front Wheeled Walker Gait Goal Standby Assistance,Front Wheel Walker Gait Distance 25 Days to Meet Goals 10 Frequency of Treatment Frequency Of Treatment Twice a Day Treatment Plan Physical Therapy Treatment Plan Bed Mobility Training,Transfer Training,Gait Training, Therapeutic Exercise,Balance Retraining,Post Op Education, Discharge Planning,Hot or Cold Pack Other Recommendations and Next Treatment transfers, gait with FWW and Focus chair follow Precautions Other Precautions NWB RLE. Western boot on LLE for mobility. Falls. Recommendations To Nursing Amount of Assist Needed 2 Person Assist Discharge Recommendations PT Discharge Recommendations Home vs SNF Other Discharge Recommendations SNF vs home with 10/09 and Equipment Needed for Home Before FWW, BSC, wheelchair Discharge Transportation Needs at Discharge Wheelchair/Cabulance
[2020-07-04 10:52] LABS: Culture Indicated Urine Cult Not Indicated; RBC Urine 0-1/HPF (0-5/HPF); Squamous Epithelial Cell Urine 0-1 /HPF (0-5/HPF); WBC Urine 0-1/HPF (0-5/HPF)
[2020-07-04] MEDS: DESVENLAFAXINE SUCCINATE 100 MG 100 EACH PO (11:00)
[2020-07-04 11:10] VITALS: BP 152/75; PULSE 89; RESP 18; TEMP 36.1; O2SAT 98
--- NOTE | 2020-07-04 14:39 | CM.DPC ---
DCP/continued: Reviewed chart. AVIATION TECHNICAL SYSTEMS SPECIALIST and [employer] TE[employer] SYSTEM[employer] SPECIALIST research program intern met with patient this AM explained CM/SW role. Patient reports that she resides alone in [place]. Patient with history of depression and anxiety which she is actively being seen for as outpatient. Patient reports that she was on hiking trip when [place]. Patient required right ankle surgery which was performed on 07-03-[address] Benjamin. PT evaluation completed this AM and SNF recommended. Patient very agreeable to SNF stay, patient requesting to be placed in Pending sale to [facility]. Patient's payor is [facility] Medicare Advantage. AVIATION TECHNICAL SYSTEMS SPECIALIST researched list of SNF's in [facility]. Placed call to [facility] and [facility]. Both report that they accept payor and have beds. AVIATION TECHNICAL SYSTEMS SPECIALIST right fax/faxed clinical to attn: Carleen at [facility]. She reviewed and will submit for insurance authorization. Patient made aware of above. She is aware and agreeable. Carleen at [facility] hopes to have authorization by tomorrow. CM team to follow closely. P: Anticipate transfer to [facility] when medically stable. PASRR needed prior to d/c. USHA Yip
--- NOTE | 2020-07-04 14:55 | PT.IPTN ---
Current Diagnoses Displaced trimalleolar fracture of right lower leg, initial encounter for closed fracture (07/02/20) Surgery Performed Operation Date: 07/03/20 09:45 Actual Procedures p ORIF Ankle Fracture(Right) - Salome Benjamin MD Physical Therapy Treatment Note M2 PT-IP Current Condition Start: 07/04/20 08:39 Freq: NEEDED Status: Active Protocol: Document 07/04/20 10:16 AW (Rec: 07/04/20 11:22 AW [id number]) Physical Therapy Current Condition Current Condition Evaluation Date 07/04/20 Treatment Diagnosis R tibial plafond fracture s/p ORIF; impaired mobility and gait Onset Date 07/03/20 Precautions Other Precautions falls Weight Bearing Status Weight Bearing Status Non-Weight Bearing Allowed Weight Bearing Amount (enter % NWB RLE. Western boot on LLE or #) (%) for mobility. M3 PT-IP Subjective Start: 07/04/20 08:39 Freq: NEEDED Status: Active Protocol: Document 07/04/20 14:55 AW (Rec: 07/04/20 15:52 AW [id number]) Subjective Physical Therapy Visit Type Type Treatment Note Visit Start Time 14:33 Visit Stop Time 14:55 Total Visit Minutes 22 Notes Ta PT, was orienting at this session and assisted with mobility. Physical Therapy Visit Comments Patient Comments Pt is willing to participate with PT Therapy Pain Assessment Pain When Pain Assessed At Rest Pain Present Pain Present Pain Reported Location Right Ankle Intensity 9 Scale Used Numeric (0 - 10) Pain Management Techniques Apply Cold,Elevation,Timing of Activity with Medications M4 PT-IP Mobility and Gait Start: 07/04/20 08:39 Freq: NEEDED Status: Active Protocol: Document 07/04/20 14:55 AW (Rec: 07/04/20 15:52 AW [id number]) PT-Transfer Assessment Sit to and From Stand Sit to and from Stand Moderate Assistance,1 Person Assistance,Use of Upper Extremities Equipment Transfer Assistive Device Gait Belt,Front Wheeled Walker Orthotic/Prosthetic Devices or Brace: No Transfers Transfer Destination Chair Transfer Technique Forward/Backward Scoot Transfer Ability Level of Assist Moderate Assistance,1 Person Assistance,Use of Upper Extremities Comments Mobility Comments Pt was sitting up in the chair as PT arrived. She reported having sat in the chair since AM eval and had been up to the [facility] with nursing x 2. Pt was able to scoot forward on the chair and stand mod A x 1. She stood and steadied herself with the FWW before walking 8 feet NWB RLE with chair follow . She needed max cues for safety with FWW, weight distribution, and safety awareness. She needed mod assist twice for recovery from posterior and lateral LOB. She sat on the chair with poorly controlled descent and then repeated the same sequence two more times with only min assist required for sit to stand. When finished, pt was left in the chair with call light and all needs in reach. Gait Assessment Gait Gait Assistance Required: Maximum Assistance,1 Person Assist Distance (Feet) 8 Able to Maintain Weight Bearing Status Yes During Gait Assistive Devices Assistive Device Front Wheeled Walker Orthotic/Prosthetic Devices or Brace: Yes Gait Deviations General Gait Pattern Antalgic,Flexed Trunk,Step-to Gait Factors Limiting Gait Function Factors Limiting Gait Function Decreased Strength,Difficulty Following Directions,Limited Range of Motion,Pain,Poor Balance,Poor Safety Awareness Comments Gait Comments Pt required max cues for safe use of FWW. She tends to hop and has trouble swinging through smoothly. PT-Balance Assessment Sitting Balance and Reactions Static Sitting Balance Ability Good Dynamic Sitting Balance Ability Good Standing Balance and Reactions Static Standing Balance Ability Fair Dynamic Standing Balance Ability Poor Device Used FWW M5 PT-IP Objective Assessments Start: 07/04/20 08:39 Freq: NEEDED Status: Active Protocol: Document 07/04/20 10:16 AW (Rec: 07/04/20 11:22 AW [id number]) Orientation Orientation/Cognition Level of Alertness Alert Orientation Name,Day of Week,Place, Situation Language Function Ability No Deficits Noted Safety Awareness Understands Safety Issues Memory Description No Deficits Noted Gross Range of Motion Upper Extremity ROM Assessment Within Functional Limits Lower Extremity ROM Assessment Right Impaired Strength Upper Extremity Strength Assessment Bilaterally Impaired Shoulder 4/5 Elbow 4+/5 Lower Extremity Strength Assessment Right Impaired Hip 4-/5 Knee 4/5 Comments Strength Comments LLE grossly 4+/5 Sensation Assessment Sensation Gross Sensation WNL Muscle Tone Muscle Tone WNL Yes M6 PT-IP Treatment Start: 07/04/20 08:39 Freq: NEEDED Status: Active Protocol: Document 07/04/20 14:55 AW (Rec: 07/04/20 15:52 AW [id number]) Physical Therapy Treatment Education Education Provided Weight Bearing Status,Safety Brace Education [place],Patient Other Treatments Other Treatment Performed Pt able to don her walking boot with cues and set up. M7 PT-IP Assessment and Plan Start: 07/04/20 08:39 Freq: NEEDED Status: Active Protocol: Document 07/04/20 14:55 AW (Rec: 07/04/20 15:52 AW [id number]) PT Summary Assessment and Plan Summary Impairments Pain,ROM,Strength,Balance,Bed Mobility,Transfers,Gait Progress Towards Goals Slow Progress due to Pain,Slow Progress due to Activity Tolerance Assessment Summary Cheri improved her sit to stand this session but remains at high risk of falls due to inability to properly position herself/shift her weight within the walker frame. She continues to required max assist x 1 or mod assist x 2 for transfers and short bout ambulation with FWW. She will require SNF rehab to improve strength and mobility independence. Goals Bed Mobility Goal Standby Assistance Transfer Goal Standby Assistance,Front Wheeled Walker Gait Goal Standby Assistance,Front Wheel Walker Gait Distance 25 Days to Meet Goals 10 Frequency of Treatment Frequency Of Treatment Twice a Day Treatment Plan Physical Therapy Treatment Plan Bed Mobility Training,Transfer Training,Gait Training, Therapeutic Exercise,Balance Retraining,Post Op Education, Discharge Planning,Hot or Cold Pack Other Recommendations and Next Treatment transfers, gait with FWW and Focus chair follow Precautions Other Precautions NWB RLE. Western boot on LLE for mobility. Falls. Recommendations To Nursing Amount of Assist Needed 2 Person Assist Discharge Recommendations PT Discharge Recommendations Home vs SNF Other Discharge Recommendations SNF vs home with 24/7 and Equipment Needed for Home Before FWW, BSC, wheelchair Discharge Transportation Needs at Discharge Wheelchair/Cabulance
[2020-07-04 15:35] VITALS: BP 143/80; PULSE 95; RESP 16; TEMP 36.9
[2020-07-04 19:40] VITALS: BP 143/91; PULSE 98; RESP 16; TEMP 36.6
[2020-07-04] MEDS: SODIUM CHLORIDE 0.9% FLUSH 10 ML IV (21:04)
[2020-07-04] MEDS: QUETIAPINE 25 MG TABLET PO (21:04)
[2020-07-04] MEDS: PRAZOSIN 1 MG CAPSULE PO (21:04)
--- NOTE | 2020-07-04 21:56 | PC.NURSE ---
Report received, care assumed 1530. VSS. Pt reports pain level of 7, but that it is tolerable and she doesn't wish to have more or different pain meds at this time. Up to BSC to void; [id number] to right foot, stand and pivot on left foot. Pt. tearful, verbalizing anxiety, concerned about getting her non-formulary Latuda. Unable to locate it, Konstantin (pharmacist) contacted, he delivered it to RN at bedside. Pt. much relieved.
[2020-07-04 22:25] VITALS: BP 144/75; PULSE 96
[2020-07-05 00:06] VITALS: BP 140/73; PULSE 104; RESP 16; TEMP 36.2; O2SAT 98
[2020-07-05] MEDS: PANTOPRAZOLE DR 20 MG TABLET PO (05:43)
[2020-07-05 06:09] VITALS: BP 146/72; PULSE 90; RESP 16; TEMP 36.7; O2SAT 93
--- NOTE | 2020-07-05 07:27 | P.PN_ITS ---
Subjective Subjective Date Patient Seen: 07/05/20 Time Patient Seen: 07:27 Interval history: Patient states she is doing well overall and is in minimal discomfort at rest. At this time she denies fever, chills, nausea, chest pain, shortness of breath, or urinary retention. Patient reports good sensation throughout the bilateral lower extremities. She explains that physical therapy has gone well so far and she is looking forward to ultimately being discharged. Exam Vital Signs (past 8 hours): - 07/05/20 00:06 07/05/20 06:09 Temperature 97.2 F L 98.0 F Pulse Rate 104 H 90 Respiratory Rate 16 16 Blood Pressure 140/73 146/72 H Pulse Oximetry 98 93 Oxygen Delivery Method Room Air Oxygen Flow Rate 0 Narrative Exam Narrative: Pleasant 50-year-old female postop day 2 status post ORIF right tibia plafond fracture. Patient is resting comfortably in bed, is in no acute distress, is alert and oriented x3. Skin is warm and dry. Good sensation appreciated throughout the bilateral lower extremities to light touch. Exam slightly limited due to bulky dressing over the right lower extremity. Hip flexion performed bilaterally without difficulty or discomfort. Ankle dorsiflex ion, plantar flexion, eversion, inversion performed on the left lower extremity without difficulty or discomfort. Left calf is soft and nontender. Patient reports good sensation in the toes bilaterally with gross motor function intact. No signs of DVT appreciated. Const General: cooperative, healthy appearing and comfortable Resp Effort & Inspection: normal respiratory effort and able to speak in complete sentences Skin General: no rashes or lesions noted Objective Labs Result Diagrams: 07/04/20 06:20 07/02/20 17:50 Labs: Laboratory Results - last 24 hr 07/04/20 09:40 Urine Color Yellow Urine Appearance Clear Urine pH 6.5 Ur Specific [place] <=1.005 Urine Protein Negative Urine Glucose (UA) Negative Urine Ketones Negative Urine Occult Blood Trace-lysed Urine Nitrate Negative Urine Bilirubin Negative Urine Urobilinogen 0.2 Ur Leukocyte Esterase Negative Urine RBC 0-1/hpf Urine WBC 0-1/hpf Ur Squamous Epith Cells 0-1 /hpf Other Crystals Urine Bacteria None seen Ur Culture Indicated? Cult not indicated PFSH Social History household members: none Smoking Status: Never smoker alcohol intake: current Assessment & Plan Post-op Postoperative Procedures: Procedures Operation Date: 07/03/20 09:45 Actual Procedures Side Surgeon p ORIF Ankle Fracture Right Salome Benjamin MD Postoperative day: 1 Postoperative status: doing well Postoperative plan: ambulate Postoperative plan narrative: Patient is to continue working on ambulation with the assistance of a front wheeled walker with PT. current pain management regimen is to be continued as it is adequately controlling the patient's pain level at this time. Chest X-ray and urinalysis performed yesterday did not provide reason for the patient's elevated white blood cell count. Patient will likely be cleared for discharge today pending successful work with PT. Time Spent With Patient Time with patient: 15-24 minutes Quality VTE Deep Vein Thrombosis/Pulmonary Embolism Present on Admission: No
[2020-07-05 07:36] VITALS: O2SAT 95
[2020-07-05] MEDS: DOCUSATE 100 MG CAPSULE PO ×2 (08:27→21:14)
[2020-07-05] MEDS: buPROPion XL 150 MG TAB 450 MG PO (08:27)
[2020-07-05] MEDS: ASPIRIN EC 81 MG TABLET PO ×2 (08:27→21:14)
[2020-07-05] MEDS: polyethylene glycoL 3350 17 GM POWD.PACK PO (08:28)
[2020-07-05] MEDS: ESCITALOPRAM 10 MG TABLET 20 MG PO (08:31)
[2020-07-05] MEDS: DESVENLAFAXINE SUCCINATE 100 MG 100 EACH PO (09:11)
[2020-07-05] MEDS: SODIUM CHLORIDE 0.9% FLUSH 10 ML IV ×2 (09:29→21:15)
--- NOTE | 2020-07-05 10:23 | PT.IPTN ---
Current Diagnoses Displaced trimalleolar fracture of right lower leg, initial encounter for closed fracture (07/02/20) Surgery Performed Operation Date: 07/03/20 09:45 Actual Procedures p ORIF Ankle Fracture(Right) - Salome Benjamin MD Physical Therapy Treatment Note M2 PT-IP Current Condition Start: 07/04/20 08:39 Freq: NEEDED Status: Active Protocol: Document 07/04/20 10:16 AW (Rec: 07/04/20 11:22 AW [id number]) Physical Therapy Current Condition Current Condition Evaluation Date 07/04/20 Treatment Diagnosis R tibial plafond fracture s/p ORIF; impaired mobility and gait Onset Date 07/03/20 Precautions Other Precautions falls Weight Bearing Status Weight Bearing Status Non-Weight Bearing Allowed Weight Bearing Amount (enter % NWB RLE. Western boot on LLE or #) (%) for mobility. M3 PT-IP Subjective Start: 07/04/20 08:39 Freq: NEEDED Status: Active Protocol: Document 07/05/20 10:23 AW (Rec: 07/05/20 11:08 AW [id number]) Subjective Physical Therapy Visit Type Type Treatment Note Visit Start Time 10:06 Visit Stop Time 10:23 Total Visit Minutes 17 Number of MANAGEMENT ARCHITECT Visits 0 Physical Therapy Visit Comments Patient Comments Pt is willing to participate with PT Therapy Pain Assessment Pain When Pain Assessed At Rest Pain Present Pain Present Pain Reported Location Right Ankle Intensity 5 Scale Used Numeric (0 - 10) Pain Management Techniques Apply Cold,Elevation,Timing of Activity with Medications M4 PT-IP Mobility and Gait Start: 07/04/20 08:39 Freq: NEEDED Status: Active Protocol: Document 07/05/20 10:23 AW (Rec: 07/05/20 11:08 AW [id number]) PT-Transfer Assessment Sit to and From Stand Sit to and from Stand Minimal Assistance,1 Person Assistance,Use of Upper Extremities Equipment Transfer Assistive Device Gait Belt,Front Wheeled Walker Orthotic/Prosthetic Devices or Brace: Yes Transfers Transfer Destination Chair Transfer Technique Stand Step Pivot Transfer Ability Level of Assist Moderate Assistance,1 Person Assistance,Use of Upper Extremities Comments Mobility Comments Pt was sitting up in the chair after having just transferred to and from the [facility] with nursing. She agreed to further mobility and stood from the chair min assist and min cues for sequencing. She used the FWW with improved efficiency to walk 4 feet forward, turn to her left, and 4 feet back to the chair. NWB RLE ambulation required mod assist up to max assist as she lost her balance laterally x 2 and required assist for recovery. She transferred back to the chair mod assist, rested, and completed another lap in similar fashion. Pt was fatigued and requested to stay up on the chair. She was left with call light and all needs in reach. Gait Assessment Gait Gait Assistance Required: Moderate Assistance,Maximum Assistance,1 Person Assist Distance (Feet) 8 Able to Maintain Weight Bearing Status Yes During Gait Assistive Devices Assistive Device Front Wheeled Walker Orthotic/Prosthetic Devices or Brace: Yes Gait Deviations General Gait Pattern Antalgic,Flexed Trunk,Step-to Gait Factors Limiting Gait Function Factors Limiting Gait Function Decreased Strength,Difficulty Following Directions,Limited Range of Motion,Pain,Poor Balance,Poor Safety Awareness Comments Gait Comments Pt improving with efficiency. She is able to maintain NWB RLE but needs mod to max assist due to instability and LOB. Stair Climbing Assessment Comments Stair Climbing Comments Not assessed. PT-Balance Assessment Sitting Balance and Reactions Static Sitting Balance Ability Good Dynamic Sitting Balance Ability Good Standing Balance and Reactions Static Standing Balance Ability Fair Dynamic Standing Balance Ability Poor Device Used FWW M5 PT-IP Objective Assessments Start: 07/04/20 08:39 Freq: NEEDED Status: Active Protocol: Document 07/04/20 10:16 AW (Rec: 07/04/20 11:22 AW [id number]) Orientation Orientation/Cognition Level of Alertness Alert Orientation Name,Day of Week,Place, Situation Language Function Ability No Deficits Noted Safety Awareness Understands Safety Issues Memory Description No Deficits Noted Gross Range of Motion Upper Extremity ROM Assessment Within Functional Limits Lower Extremity ROM Assessment Right Impaired Strength Upper Extremity Strength Assessment Bilaterally Impaired Shoulder 4/5 Elbow 4+/5 Lower Extremity Strength Assessment Right Impaired Hip 4-/5 Knee 4/5 Comments Strength Comments LLE grossly 4+/5 Sensation Assessment Sensation Gross Sensation WNL Muscle Tone Muscle Tone WNL Yes M6 PT-IP Treatment Start: 07/04/20 08:39 Freq: NEEDED Status: Active Protocol: Document 07/05/20 10:23 AW (Rec: 07/05/20 11:08 AW [id number]) Physical Therapy Treatment Education Education Provided Weight Bearing Status,Safety Brace Education [place],Patient Other Treatments Other Treatment Performed LAQ, seated knee flexion/ extension, seated hip flexor march, seated hip abduction with therapist resistance, adduction with pillow x 10 each. M7 PT-IP Assessment and Plan Start: 07/04/20 08:39 Freq: NEEDED Status: Active Protocol: Document 07/05/20 10:23 AW (Rec: 07/05/20 11:08 AW [id number]) PT Summary Assessment and Plan Summary Impairments Pain,ROM,Strength,Balance,Bed Mobility,Transfers,Gait Progress Towards Goals Slow Progress due to Pain,Slow Progress due to Activity Tolerance Assessment Summary Cheri continues to make incremental improvement in her mobility but requires up to max assist during gait with FWW due to instability and LOB . She requires SNF rehab to improve strength and mobility independence. Goals Bed Mobility Goal Standby Assistance Transfer Goal Standby Assistance,Front Wheeled Walker Gait Goal Standby Assistance,Front Wheel Walker Gait Distance 25 Days to Meet Goals 10 Frequency of Treatment Frequency Of Treatment Twice a Day Treatment Plan Physical Therapy Treatment Plan Bed Mobility Training,Transfer Training,Gait Training, Therapeutic Exercise,Balance Retraining,Post Op Education, Discharge Planning,Hot or Cold Pack Other Recommendations and Next Treatment transfers, gait with FWW and Focus chair follow, ther ex (supine or seated) Precautions Other Precautions NWB RLE. Western boot on LLE for mobility. Falls. Recommendations To Nursing Amount of Assist Needed 2 Person Assist Discharge Recommendations PT Discharge Recommendations Home vs SNF Other Discharge Recommendations SNF vs home with 10/09 and Equipment Needed for Home Before FWW, BSC, wheelchair if home Discharge
--- NOTE | 2020-07-05 11:07 | PM.DS.1 ---
History of Present Illness History of Present Illness Date Patient Seen: 07/05/20 Time Patient Seen: 11:07 Chief complaint: right ankle injury Narrative: This is the 50-year-old female who was at a retreat somewhere in the and a [facility] area and fell going over a log noted the acute onset of bilateral right greater than left ankle and foot pain. She had severe pain in her right ankle and noticed deformity of her foot was unable to weightbear on it. 911 was called and she was transferred to [facility]. She notes significant pain in the right ankle. She lives in [place] and is on disability due to a combination of depression and anxiety. She lives in apartment which is on the 2nd story. She has a sister who lives in [place]. Discharge Providers Provider Date of admission: 07/02/20 19:14 Discharge Date: 07/05/20 Consults: 07/02/20 20:43 Consult to Pastoral Services Routine Comment: Per patient request 07/03/20 16:35 Consult to Discharge Planning Routine Comment: Consult to Physical Therapy Evaluate & Treat Comment: non weight bearing on right lower extremity Physician Instructions: Evaluate and Treat Consult to Respiratory Therapy Evaluate & Treat Comment: Physician Instructions: Evaluate and treat Discharge provider: Anibal Morris PA-C Summary Hospital Course Discharge Diagnosis: Right trimalleolar ankle fracture with dislocation and the tibial plafond extension Status post ORIF right tibial plafond fracture Hospital Course: Patient was admitted to the hospital following the above-listed procedure for the above-listed diagnosis. Following the procedure the patient has been convalescing appropriately in her pain has been managed with current pain management regimen. Patient has remained nonweightbearing on the right lower extremity following admission, and she has been using her boot on the left lower extremity while working with PT and ambulating. Throughout the course of her stay in the hospital the patient has denied fever, chills, nausea, chest pain, shortness of breath, or urinary retention. Aspirin 81 mg twice daily has been administered for DVT prophylaxis along with the use of SCDs. Patient has successfully worked with physical therapy on ambulation with use of crutches. Status at Discharge Cognitive/behavioral status at discharge: oriented Functional status at discharge: uses cane/walker Overall status at discharge: patient is progressing back to baseline Exam Vital Signs (past 8 hours): - 07/05/20 06:09 07/05/20 07:36 Temperature 98.0 F Pulse Rate 90 Respiratory Rate 16 Blood Pressure 146/72 H Pulse Oximetry 93 95 Oxygen Delivery Method Room Air Oxygen Flow Rate 0 Narrative Exam Narrative: Pleasant 50-year-old female postop day 2 status post ORIF right tibia plafond fracture. Patient is resting comfortably in bed, is in no acute distress, is alert and oriented x3. Skin is warm and dry. Good sensation appreciated throughout the bilateral lower extremities to light touch. Exam slightly limited due to bulky dressing over the right lower extremity. Hip flexion performed bilaterally without difficulty or discomfort. Ankle dorsiflexion, plantar flexion, eversion, inversion performed on the left lower extremity without difficulty or discomfort. Left calf is soft and nontender. Patient reports good sensation in the toes bilaterally with gross motor function intact. No signs of DVT appreciated. Const General: cooperative, healthy appearing and comfortable Resp Effort & Inspection: normal respiratory effort and able to speak in complete sentences Skin General: no rashes or lesions noted Objective Labs Result Diagrams: 07/04/20 06:20 07/02/20 17:50 [facility] Social History household members: none Smoking Status: Never smoker alcohol intake: current Discharge Assessment & Plan Assessment and Plan Assessment: Patient is doing well. Plan of Treatment: Patient is to continue to remain nonweightbearing on the right lower extremity for 6 weeks, and she has to use her walking boot on the left lower extremity while ambulating. Current pain management is to be continued as it is adequately controlled the patient's pain level. Dressing over the incision site can be changed as needed if it is to become damaged or soiled. Patient is to avoid placing topical ointments over the incision site were soaking the incision site. Aspirin 81 mg twice daily is to be continued for 6 weeks for DVT prophylaxis. First postoperative visit in the clinic is scheduled for 2 weeks following discharge from the hospital. Patient is to continue outpatient physical therapy following discharge. Any concerns or questions should be reported to the clinic. Any signs of increased redness, swelling, pain, or discharge around the incision site should be reported to the clinic. Discharge Plan Discharge Plan Patient Disposition: SNF Other facility[facility] Provider Discharge Comment: Patient cleared for discharge pending PT approval and placement at residential facility. Discharge orders & Medications Prescriptions: New aspirin 81 mg Tablet,Delayed Release (Dr/Ec) 81 mg PO BID Qty: 90 RF: 0 oxycodone 5 mg Tablet 5 mg PO Q3HR PRN (Reason: Pain, Moderate (4-6)) Qty: 42 RF: 0 Continued quetiapine 25 mg tablet 25 mg PO BEDTIME RF: 0 prazosin 1 mg capsule 1 mg PO BEDTIME RF: 0 escitalopram oxalate 20 mg tablet 20 mg PO DAILY RF: 0 omeprazole magnesium [Prilosec OTC] 20 mg Tablet,Delayed Release (Dr/Ec) 20 mg PO DAILY RF: 0 bupropion HCl 300 mg tablet extended release 24 hr 300 mg PO DAILY RF: 0 bupropion HCl 150 mg tablet extended release 24 hr 150 mg PO DAILY RF: 0 desvenlafaxine succinate 100 mg tablet extended release 24 hr 100 mg PO DAILY RF: 0 Latuda 40 mg tablet 40 mg PO BEDTIME RF: 0 alprazolam 0.5 mg tablet 1 mg PO PRN PRN (Reason: Anxiety) Qty: 30 RF: 0 Diet/Activity/Treatments Diet: Diet as Tolerated Activity: Non weight-bearing on right lower extremity for 6 weeks. Walking boot needed on left lower extremity to ambulate. Skin/Wound/Dressing Care Report to your healthcare provider any signs of infection, such as:: chills, fever, night sweats, increased pain, unusual drainage and unusual redness Dressing: Dressing can be changed as needed if it becomes soiled or damaged. Other wound treatment: Avoid placing topical ointments over the incision. [facility] Rehab type: Physical therapy and Occupational therapy Visit Report/Discharge Packet Instructions: DI for Open Reduction Internal Fixation Surgery, DI for Prescription Opioid Use Stand Alone Forms: Surgery Discharge Quality VTE Deep Vein Thrombosis/Pulmonary Embolism Present on Admission: No
[2020-07-05 11:55] VITALS: BP 135/71; RESP 16; TEMP 36.4
[2020-07-05] MEDS: ALPRAZolam 0.5 MG TABLET 1 MG PO (12:25)
[2020-07-05] MEDS: ACETAMINOPHEN 325 MG TABLET 650 MG PO (14:35)
--- NOTE | 2020-07-05 15:15 | PT.IPTN ---
Current Diagnoses Displaced trimalleolar fracture of right lower leg, initial encounter for closed fracture (07/02/20) Surgery Performed Operation Date: 07/03/20 09:45 Actual Procedures p ORIF Ankle Fracture(Right) - Salome Benjamin MD Physical Therapy Treatment Note M2 PT-IP Current Condition Start: 07/04/20 08:39 Freq: NEEDED Status: Active Protocol: Document 07/04/20 10:16 AW (Rec: 07/04/20 11:22 AW [id number]) Physical Therapy Current Condition Current Condition Evaluation Date 07/04/20 Treatment Diagnosis R tibial plafond fracture s/p ORIF; impaired mobility and gait Onset Date 07/03/20 Precautions Other Precautions falls Weight Bearing Status Weight Bearing Status Non-Weight Bearing Allowed Weight Bearing Amount (enter % NWB RLE. Western boot on LLE or #) (%) for mobility. M3 PT-IP Subjective Start: 07/04/20 08:39 Freq: NEEDED Status: Active Protocol: Document 07/05/20 15:15 AB (Rec: 07/05/20 17:07 AB [id number]) Subjective Physical Therapy Visit Type Type Treatment Note Visit Start Time 15:15 Visit Stop Time 15:40 Total Visit Minutes 25 Number of ASSEMBLER MOLDED FRAMES Visits 0 Physical Therapy Visit Comments Patient Comments agreeable to do PT Therapy Pain Assessment Pain When Pain Assessed At Rest Pain Present Pain Present Pain Reported Location Right Ankle Intensity 7 Scale Used Numeric (0 - 10) Pain Management Techniques Distraction,Modification of Treatment,Re-positioning, Timing of Activity with Medications M4 PT-IP Mobility and Gait Start: 07/04/20 08:39 Freq: NEEDED Status: Active Protocol: Document 07/05/20 15:15 AB (Rec: 07/05/20 17:03 AB [id number]) PT-Transfer Assessment Sit to and From Stand Sit to and from Stand Minimal Assistance,Moderate Assistance,1 Person Assistance ,Use of Upper Extremities Equipment Transfer Assistive Device Gait Belt,Front Wheeled Walker Orthotic/Prosthetic Devices or Brace: No Transfers Transfer Destination Bedside Commode Transfer Technique ambulated using FWW Transfer Ability Level of Assist Moderate Assistance,Maximum Assistance,1 Person Assistance ,Use of Upper Extremities Comments Mobility Comments pt sitting on chair and agreeable to do PT. completed sit to stand from chair mod A and cues. ambulated using FWW NWB ~ 5 ft mod to max A with very unsteady gait. instructed to sit on bedside commode. requested assist from NAC. pt completed sit to stand from bedside commode mod A and cues and NAC assisted with hygiene care and PT assisted with standing balance requiring mod A and cues for steadiness and safety . pt ambulated back to chair using FWW mod to max A and cues . pt with walking boot on LLE and is NWB on RLE and are limiting pt's mobility and steadiness. pt seems to have slight tremors on her trunk and stated that she sometimes have that due to anxiety. educated pt on safety and trunk control. educated on sit to stand technique and increase trunk stability to assist with sit to stand. completed sit to stand CGA to min A after wards x 4 reps . positioned pt on chair. call light and table placed within reach. Gait Assessment Gait Gait Assistance Required: Moderate Assistance,Maximum Assistance,1 Person Assist Distance (Feet) 5 Able to Maintain Weight Bearing Status Yes During Gait Assistive Devices Assistive Device Front Wheeled Walker Orthotic/Prosthetic Devices or Brace: Yes Factors Limiting Gait Function Factors Limiting Gait Function Decreased Activity Tolerance, Decreased Strength,Limited Range of Motion,Pain,Poor Balance,Poor Safety Awareness Comments Gait Comments pls refer to mobility section for details M5 PT-IP Objective Assessments Start: 07/04/20 08:39 Freq: NEEDED Status: Active Protocol: Document 07/04/20 10:16 AW (Rec: 07/04/20 11:22 AW [id number]) Orientation Orientation/Cognition Level of Alertness Alert Orientation Name,Day of Week,Place, Situation Language Function Ability No Deficits Noted Safety Awareness Understands Safety Issues Memory Description No Deficits Noted Gross Range of Motion Upper Extremity ROM Assessment Within Functional Limits Lower Extremity ROM Assessment Right Impaired Strength Upper Extremity Strength Assessment Bilaterally Impaired Shoulder 4/5 Elbow 4+/5 Lower Extremity Strength Assessment Right Impaired Hip 4-/5 Knee 4/5 Comments Strength Comments LLE grossly 4+/5 Sensation Assessment Sensation Gross Sensation WNL Muscle Tone Muscle Tone WNL Yes M6 PT-IP Treatment Start: 07/04/20 08:39 Freq: NEEDED Status: Active Protocol: Document 07/05/20 15:15 AB (Rec: 07/05/20 17:03 AB [id number]) Physical Therapy Treatment Education Education Provided Weight Bearing Status,Safety M7 PT-IP Assessment and Plan Start: 07/04/20 08:39 Freq: NEEDED Status: Active Protocol: Document 07/05/20 15:15 AB (Rec: 07/05/20 17:03 AB [id number]) PT Summary Assessment and Plan Potential Rehabilitation Potential Good Summary Impairments Pain,ROM,Strength,Balance, Coordination,Sensation,Tone, Cognition,Bed Mobility, Transfers,Gait,Activity Tolerance Progress Towards Goals Slow Progress due to Pain,Slow Progress due to Medical Issues,Slow Progress due to Activity Tolerance Assessment Summary pt requiring mod to max A with mobility using FWW and will need SNF rehab to improve strength and functional independence. Goals Bed Mobility Goal Standby Assistance Transfer Goal Standby Assistance,Front Wheeled Walker Gait Goal Standby Assistance,Front Wheel Walker Gait Distance 25 Days to Meet Goals 10 Frequency of Treatment Frequency Of Treatment Twice a Day Treatment Plan Physical Therapy Treatment Plan Bed Mobility Training,Transfer Training,Gait Training, Therapeutic Exercise,Balance Retraining,Post Op Education, Discharge Planning,Hot or Cold Pack Precautions Other Precautions NWB RLE Western boot on LLE for mobility Falls Recommendations To Nursing Amount of Assist Needed 2 Person Assist Discharge Recommendations PT Discharge Recommendations SNF Rehab
[2020-07-05 15:49] VITALS: BP 131/79; PULSE 92; RESP 20; TEMP 35.8; O2SAT 95
[2020-07-05 16:27] LABS: COVID19 -Nasal RAPID Negative (Negative)
[2020-07-05 19:47] VITALS: BP 126/83; PULSE 95; RESP 18; TEMP 35.7; O2SAT 96
[2020-07-05] MEDS: QUETIAPINE 25 MG TABLET PO (21:14)
[2020-07-05] MEDS: PRAZOSIN 1 MG CAPSULE PO (21:14)
[2020-07-06] MEDS: SODIUM CHLORIDE 0.9% FLUSH 10 ML IV (05:53)
[2020-07-06] MEDS: PANTOPRAZOLE DR 20 MG TABLET PO (05:53)
[2020-07-06] MEDS: ACETAMINOPHEN 325 MG TABLET 650 MG PO (06:28)
[2020-07-06 06:40] VITALS: BP 148/77; PULSE 86; RESP 18; TEMP 36.4; O2SAT 96
[2020-07-06 08:30] VITALS: BP 135/65; PULSE 83; RESP 16; TEMP 36.1; O2SAT 96
[2020-07-06] MEDS: DESVENLAFAXINE SUCCINATE 100 MG 100 EACH PO (09:23)
[2020-07-06] MEDS: polyethylene glycoL 3350 17 GM POWD.PACK PO (09:23)
[2020-07-06] MEDS: ESCITALOPRAM 10 MG TABLET 20 MG PO (09:23)
[2020-07-06] MEDS: ASPIRIN EC 81 MG TABLET PO (09:23)
[2020-07-06] MEDS: buPROPion XL 150 MG TAB 450 MG PO (09:23)
[2020-07-06] MEDS: DOCUSATE 100 MG CAPSULE PO (09:23)
[2020-07-06 09:35] VITALS: O2SAT 99
--- NOTE | 2020-07-06 10:07 | CM.DPNOTE ---
Faxed Medicaid transport and [place] said [facility] will be the Transport. Called and spoke to May at [facility] and she said a pickle water pump operator time of 10:45 to 11 due to their person being in [place] at the time. Cheri Brown.
--- NOTE | 2020-07-06 10:29 | PT.IPTN ---
Current Diagnoses Displaced trimalleolar fracture of right lower leg, initial encounter for closed fracture (07/02/20) Surgery Performed Operation Date: 07/03/20 09:45 Actual Procedures p ORIF Ankle Fracture(Right) - Salome Benjamin MD Physical Therapy Treatment Note M2 PT-IP Current Condition Start: 07/04/20 08:39 Freq: NEEDED Status: Discharge Protocol: Document 07/04/20 10:16 AW (Rec: 07/04/20 11:22 AW [id number]) Physical Therapy Current Condition Current Condition Evaluation Date 07/04/20 Treatment Diagnosis R tibial plafond fracture s/p ORIF; impaired mobility and gait Onset Date 07/03/20 Precautions Other Precautions falls Weight Bearing Status Weight Bearing Status Non-Weight Bearing Allowed Weight Bearing Amount (enter % NWB RLE. Western boot on LLE or #) (%) for mobility. M3 PT-IP Subjective Start: 07/04/20 08:39 Freq: NEEDED Status: Discharge Protocol: Document 07/06/20 10:13 SP (Rec: 07/06/20 13:20 SP [id number]) Subjective Physical Therapy Visit Type Type Treatment Note Visit Start Time 10:13 Visit Stop Time 10:29 Total Visit Minutes 16 Notes ASSISTANT PRODUCE MANAGER in room when arrived but didn't stay, she came back at end of appt assist pt with belonging prep for DC. Number of CORK MOLDER Visits 1 Physical Therapy Visit Comments Patient Comments agreeable to do PT Patient Goals Go to a SNF to improve strength. Therapy Pain Assessment Pain When Pain Assessed During Mobility Pain Present Pain Present Pain Reported Location Right Ankle Intensity 5 Scale Used Numeric (0 - 10) Pain Management Techniques Distraction,Modification of Treatment,Re-positioning, Timing of Activity with Medications M4 PT-IP Mobility and Gait Start: 07/04/20 08:39 Freq: NEEDED Status: Discharge Protocol: Document 07/06/20 10:13 SP (Rec: 07/06/20 13:20 SP [id number]) PT-Bed Mobility Assessment Supine to Sit Supine to Sit Standby Assistance Sit to Supine Sit to Supine Standby Assistance Scooting Scooting to Edge of Bed Standby Assistance PT-Transfer Assessment Sit to and From Stand Sit to and from Stand Contact Guard Assistance,1 Person Assistance,Use of Upper Extremities Equipment Transfer Assistive Device Gait Belt,Front Wheeled Walker Orthotic/Prosthetic Devices or Brace: Yes Transfers Transfer Destination Bed,Chair Transfer Technique ambulated using FWW Transfer Ability Level of Assist Contact Guard Assistance, Minimal Assistance,1 Person Assistance,Use of Upper Extremities Comments Mobility Comments Pt seated in chair when arrived. Complete sit<>stand heavy BUE, SPT chair> bed using FWW CGA WB pivot on LLE (had boot donned) NWB RLE. sit <> supine sBA. Sit>stand CGA from bed using FWW then forward hop locomotion on LLE to sink and back x3 sets CGA- Mod A due to L LE unsteady during WB hop landing and demonstrated too large stride with mod cuing for upright posture, BUE straight to WB through on FWW, trunk over UEs and quad facilitation/L knee extension upon WB landing for safety and decrease risk buckling (almost x3). She required seated rest between sets for tiring recovery. Instructed supine LE exercises reclined in chair for self ROM and strengthening RLE. Pt was in chair with call light and all needs in reach before left. Gait Assessment Gait Gait Assistance Required: Contact Guard Assist,Moderate Assistance,1 Person Assist Distance (Feet) 10 Able to Maintain Weight Bearing Status Yes During Gait Assistive Devices Assistive Device Gait Belt,Front Wheeled Walker Orthotic/Prosthetic Devices or Brace: Yes Gait Deviations General Gait Pattern Antalgic,Flexed Trunk,Step-to Gait Factors Limiting Gait Function Factors Limiting Gait Function Decreased Activity Tolerance, Decreased Strength,Limited Range of Motion,Pain,Poor Balance,Poor Safety Awareness Comments Gait Comments See mobility comments. Stair Climbing Assessment Comments Stair Climbing Comments Not assessed. PT-Balance Assessment Sitting Balance and Reactions Static Sitting Balance Ability Good Dynamic Sitting Balance Ability Good Standing Balance and Reactions Static Standing Balance Ability Fair Dynamic Standing Balance Ability Poor Device Used FWW M5 PT-IP Objective Assessments Start: 07/04/20 08:39 Freq: NEEDED Status: Discharge Protocol: Document 07/04/20 10:16 AW (Rec: 07/04/20 11:22 AW [id number]) Orientation Orientation/Cognition Level of Alertness Alert Orientation Name,Day of Week,Place, Situation Language Function Ability No Deficits Noted Safety Awareness Understands Safety Issues Memory Description No Deficits Noted Gross Range of Motion Upper Extremity ROM Assessment Within Functional Limits Lower Extremity ROM Assessment Right Impaired Strength Upper Extremity Strength Assessment Bilaterally Impaired Shoulder 4/5 Elbow 4+/5 Lower Extremity Strength Assessment Right Impaired Hip 4-/5 Knee 4/5 Comments Strength Comments LLE grossly 4+/5 Sensation Assessment Sensation Gross Sensation WNL Muscle Tone Muscle Tone WNL Yes M6 PT-IP Treatment Start: 07/04/20 08:39 Freq: NEEDED Status: Discharge Protocol: Document 07/06/20 10:13 SP (Rec: 07/06/20 13:20 SP [id number]) Physical Therapy Treatment Exercises Exercises Quad Sets,Heel Slides,Straight Leg Raises,Seated Knee Flexion/Extension Education Education Provided Precautions,Weight Bearing Status,Safety M7 PT-IP Assessment and Plan Start: 07/04/20 08:39 Freq: NEEDED Status: Discharge Protocol: Document 07/06/20 10:13 SP (Rec: 07/06/20 13:20 SP [id number]) PT Summary Assessment and Plan Potential Rehabilitation Potential Good Summary Impairments Pain,ROM,Strength,Balance, Coordination,Sensation,Tone, Cognition,Bed Mobility, Transfers,Gait,Activity Tolerance Progress Towards Goals Progressing Toward Goals,Slow Progress due to Pain,Slow Progress due to Medical Issues ,Slow Progress due to Activity Tolerance Assessment Summary supine<> sitting sBA, sit<> stand using fWW CGA, forward hop on LLE (NWB RLE) using fWW 10 ft CG- Mod A due to unsteady hop on LLE and bends during landing. Pt would benefit from further skilled PT to improve strength and safety sequencing locomotion on LLE using fWW. Recommending SNF up on discharge. Goals Bed Mobility Goal Standby Assistance Transfer Goal Standby Assistance,Front Wheeled Walker Gait Goal Standby Assistance,Front Wheel Walker Gait Distance 25 Days to Meet Goals 10 Frequency of Treatment Frequency Of Treatment Twice a Day Treatment Plan Physical Therapy Treatment Plan Bed Mobility Training,Transfer Training,Gait Training, Therapeutic Exercise,Balance Retraining,Post Op Education, Discharge Planning,Hot or Cold Pack Other Recommendations and Next Treatment LE exercises, transfers, gait Focus using fWW and chair follow. Precautions Other Precautions NWB RLE Western boot on LLE for mobility Falls Recommendations To Nursing Amount of Assist Needed 2 Person Assist Discharge Recommendations PT Discharge Recommendations SNF Rehab Equipment Needed for Home Before FWW, BSC Discharge
--- NOTE | 2020-07-06 10:46 | PC.NURSE ---
Pt is ready for discharge to Rehab Facility. Belongings are packed up and ready to go. Called report to Bret Reynolds and answered all questions. Pt is ready to leave when pickup arrives.
[2020-07-06] MEDS: ALPRAZolam 0.5 MG TABLET 1 MG PO (11:09)
--- NOTE | 2020-07-06 11:31 | PC.NURSE ---
Pt out via w/c by [facility] transport with all belongings.
--- NOTE | 2020-07-06 12:53 | CM.DPC ---
DCP/continued: Reviewed chart. B2B APPOINTMENT SETTER received phone call this AM from Carleen Donovan[facility]. She reports that they have received authorization for rehab. Carleen reports patient can be accepted today. Facility does not provide transport and patient has no means to get to facility. Therefore, Medicaid transport form completed and faxed by SWETA/Cheri. D/C order updated to reflect today. Received call from Medicaid transport confirming that patient will need cabulance. Patient scheduled to be picked up around 11:00AM by [facility]. Met with patient and she is aware and agreeable to plan. Patient very appreciate of assistance and medical care at [facility]. RN/Billie will provide report to receiving nurse. D/C summary, orders, copy of scripts and completed/corrected PASRR sent via fax. No additional needs identified. Patient provided with copy of Important Message from Medicare. P: [facility] at [facility] today via cabulance paid for by Medicaid. USHA Yip
== END 2020-07-06 11:43 | DRG 493 ==
LOC: ED 17:04 → AC 19:17
PROVIDERS: Admitting Provider Orthopaedic Surgery; Emergency Provider Emergency Medicine; Referring Provider Emergency Medicine; Visit Provider Orthopaedic Surgery
PROC: 0SSF04Z Reposition Right Ankle Joint with Internal Fixation Device, Open Approach (ICD-10-PCS; principal; 2020-07-03 09:45)
DX: S82.851A Displaced trimalleolar fracture of right lower leg, initial encounter for closed fracture (principal); Z68.41 Body mass index [BMI] 40.0-44.9, adult; E66.01 Morbid (severe) obesity due to excess calories; W22.09XA Striking against other stationary object, initial encounter; Y92.832 Beach as the place of occurrence of the external cause; F32.9 Major depressive disorder, single episode, unspecified; F41.9 Anxiety disorder, unspecified; Z20.822 Contact with and (suspected) exposure to COVID-19
CPT/HCPCS: 27810; 29515; 36415; 71045; 73600; 73610; 73630; 73700; 76000; 80048; 81001; 85025; 85027; 85610; 87635; 94762; 96374; 97110; 97116; 97161; 97530; 99152; 99284; 99285; C9803; J0690; J1100; J1170; J2250; J2405; J2704; J3010